=== PATIENT | male | born 1950 | race Caucasian/White ===

== ENCOUNTER 2022-02-13 08:54 | Inpatient (IN) | payer OTHER, MEDICARE ==
[~2022-02-13] VITALS: Ht 182.9 cm; Wt 53.5 kg
[2022-02-13] VITALS (25 sets, daily range): BP systolic 86–136
[~2022-02-13 08:54] MED LIST: DIF100 PO
[2022-02-13] MEDS ORDERED: ROCURONIUM BROMIDE 10 MG/ML (ZEMURON) IV ONE (09:15)
[2022-02-13] MEDS ORDERED: NS 1000 ML IV.SOLN IV ONE (09:15)
[2022-02-13] MEDS ORDERED: ETOMIDATE 20 MG/ 10 ML VIAL (AMIDATE) IVP ONE (09:15)
[2022-02-13] MEDS ORDERED: PIPERACILLIN/TAZO 3.375 GM in D5W 50 ML IV ONE (09:15)
[2022-02-13] MEDS ORDERED: VANCOMYCIN HCL 1,000 MG in D5W 250 ML IV ONE (09:15)
[2022-02-13] MEDS ORDERED: PIPERACILLIN/TAZOBACTAM 3.375 GM/VIAL (ZOSYN) IV ONE (09:28)
[2022-02-13 09:56] LABS: BASOPHILS % (AUTO) 0.2 % (0.0-2.0); HEMATOCRIT 22.6 % (36-54); HEMOGLOBIN 7.3 g/dL (14.0-18.0); LYMPHOCYTES # (AUTO) 2.1 K/uL (1.0-5.5); LYMPHOCYTES % (AUTO) 15.4 % (20.5-51.5); MEAN CORPUSCULAR HEMOGLOBIN 31 pg (27-31); MEAN CORPUSCULAR HGB CONC 32 % (32-36); MEAN CORPUSCULAR VOLUME 95 fL (79.0-98.0); MONOCYTES # (AUTO) 0.4 K/uL (0.0-1.0); MONOCYTES % (AUTO) 2.9 % (1.7-9.3); NEUTROPHILS # (AUTO) 11.3 K/uL (1.8-7.7); NEUTROPHILS % (AUTO) 81.5 % (40.0-70.0); PLATELET COUNT (AUTO) 425 K/uL (130-430); RED BLOOD CELL COUNT(AUTO) 2.39 MIL/uL (4.2-6.2); RED CELL DISTRIBUTION WIDTH 17.3 % (9.0-15.0); WHITE BLOOD COUNT (AUTO) 13.8 K/uL (4.8-10.8)
[2022-02-13] MEDS ORDERED: ROCURONIUM BROMIDE 10 MG/ML (ZEMURON) ONE (10:00)
[2022-02-13] MEDS ORDERED: ETOMIDATE 20 MG/ 10 ML VIAL (AMIDATE) ONE (10:00)
[2022-02-13 10:09] LABS: ANION GAP 13 (5-15); CALCIUM 8.5 mg/dL (8.4-11.0); CHLORIDE 107 mmol/L (98-107); CREATININE 1.07 mg/dL (0.55-1.30); GLUCOSE 161 mg/dL (70-99); UREA NITROGEN, BLOOD 70 mg/dL (8-21)
[2022-02-13 10:14] LABS: ALANINE AMINOTRANSFERASE 18 U/L (12-78); ALBUMIN 1.8 g/dL (3.4-4.8); ASPARTATE AMINOTRANSFERASE 15 U/L (10-37); GFR AFRICAN AMERICAN 88 mL/min (>90); TOTAL BILIRUBIN 0.2 mg/dL (0.0-1.0)
[2022-02-13] MEDS ORDERED: PANTOPRAZOLE SODIUM 40 MG/VIAL (PROTONIX) IVP ONE (10:15)
[2022-02-13] MEDS ORDERED: PROPOFOL DRIP 100 ML IV ONE (11:14)
[2022-02-13] MEDS ORDERED: PROPOFOL DRIP 100 ML IV PRN ×2 (11:15→15:00)
[2022-02-13] MEDS: NACL 0.9% 1,000 ML IV SCH (12:00)
[2022-02-13] MEDS ORDERED: NOREPINEPHRINE 4 MG/4 ML VIAL IV ONE (12:08)
[2022-02-13 12:53] LABS: HEMATOCRIT 20.8 % (36-54); HEMOGLOBIN 6.8 g/dL (14.0-18.0)
[2022-02-13] MEDS ORDERED: CEFEPIME 1 GM in D5W 50 ML IV ONE (13:30)
[2022-02-13 13:47] LABS: INR 1.2 (0.80-1.20)
[2022-02-13] MEDS: metroNIDAZOLE 250 mg/NS 50 ML IV SCH ×2 (15:00→22:00)
[2022-02-13] MEDS ORDERED: PANTOPRAZOLE SODIUM 40 MG in NS 50 ML IV SCH (15:45)
[2022-02-13] MEDS: NOREPINEPHRINE BITARTRATE 4 MG in D5W 246 ML IV PRN ×2 (15:54→18:40)
[2022-02-13] MEDS: PANTOPRAZOLE SODIUM 40 MG in NS 50 ML IV SCH ×2 (16:00→19:53)
[2022-02-13] MEDS: VANCOMYCIN HCL 1,000 MG in NS 250 ML IV SCH (17:00)
[2022-02-13] MEDS ORDERED: COMMUNICATION ORDER XX ONE (18:45)
[2022-02-13 19:43] LABS: HEMATOCRIT 27.1 % (36-54); HEMOGLOBIN 9.2 g/dL (14.0-18.0)
[2022-02-13] MEDS: CEFEPIME 1 GM in D5W 50 ML IV SCH (20:46)
[2022-02-13] MEDS ORDERED: NOREPINEPHRINE BITARTRATE 8 MG in D5W 242 ML IV PRN (21:00)
[2022-02-14] VITALS (43 sets, daily range): BP systolic 81–114
[2022-02-14] MEDS: PANTOPRAZOLE SODIUM 40 MG in NS 50 ML IV SCH ×5 (01:30→20:29)
[2022-02-14] MEDS ORDERED: NOREPINEPHRINE 4 MG/4 ML VIAL IV ONE (01:38)
[2022-02-14] MEDS: PROPOFOL DRIP 100 ML IV PRN ×5 (03:39→23:23)
[2022-02-14] MEDS: NACL 0.9% 1,000 ML IV SCH ×3 (03:46→20:28)
[2022-02-14] MEDS: VANCOMYCIN HCL 1,000 MG in NS 250 ML IV SCH ×2 (04:00→15:32)
[2022-02-14] MEDS: metroNIDAZOLE 250 mg/NS 50 ML IV SCH ×3 (06:22→20:31)
[2022-02-14 07:24] LABS: HEMOGLOBIN 8.4 g/dL (14.0-18.0); MEAN CORPUSCULAR HEMOGLOBIN 30 pg (27-31); MEAN CORPUSCULAR HGB CONC 34 % (32-36); MEAN CORPUSCULAR VOLUME 89 fL (79.0-98.0); PLATELET COUNT (AUTO) 297 K/uL (130-430); RED BLOOD CELL COUNT(AUTO) 2.81 MIL/uL (4.2-6.2); RED CELL DISTRIBUTION WIDTH 16.5 % (9.0-15.0); WHITE BLOOD COUNT (AUTO) 26.8 K/uL (4.8-10.8)
[2022-02-14 07:50] LABS: ALBUMIN 1.7 g/dL (3.4-4.8); CALCIUM 7.3 mg/dL (8.4-11.0); CREATININE 0.83 mg/dL (0.55-1.30); TOTAL BILIRUBIN 0.3 mg/dL (0.0-1.0)
[2022-02-14] MEDS: CEFEPIME 1 GM in D5W 50 ML IV SCH ×2 (10:28→20:30)
[2022-02-14 14:12] LABS: BASOPHILS % (MANUAL) 0 % (0-2); EOSINOPHILS % (MANUAL) 0 % (0-7); LYMPHOCYTES % (MANUAL) 9 % (20-46); MONOCYTES % (MANUAL) 1 % (0-11)
[2022-02-14 14:25] LABS: HEMATOCRIT 22.1 % (36-54); HEMOGLOBIN 7.6 g/dL (14.0-18.0)
[2022-02-14 14:39] LABS: TOTAL IRON BIND. CAPACITY 175 ug/dL (250-450)
[2022-02-14] MEDS: FLUCONAZOLE 100 mg/ NS 50 ML IV SCH (15:32)
[2022-02-14 19:04] LABS: HEMOGLOBIN 7.2 g/dL (14.0-18.0)
[2022-02-14 19:13] LABS: HEMATOCRIT 21.5 % (36-54)
[2022-02-14] MEDS ORDERED: CEFEPIME 1 GM/VIAL (MAXIPIME) ONE (20:14)
[2022-02-15] VITALS (34 sets, daily range): BP systolic 92–120
[2022-02-15] MEDS ORDERED: NOREPINEPHRINE 4 MG/4 ML VIAL IV ONE (01:00)
[2022-02-15] MEDS: NACL 0.9% 1,000 ML IV SCH (01:12)
[2022-02-15] MEDS: PANTOPRAZOLE SODIUM 40 MG in NS 50 ML IV SCH ×5 (01:47→22:33)
[2022-02-15] MEDS: VANCOMYCIN HCL 1,000 MG in NS 250 ML IV SCH ×2 (03:44→17:22)
[2022-02-15] MEDS: metroNIDAZOLE 250 mg/NS 50 ML IV SCH ×3 (05:30→22:33)
[2022-02-15] MEDS: PROPOFOL DRIP 100 ML IV PRN (05:47)
[2022-02-15] MEDS: CEFEPIME 1 GM in D5W 50 ML IV SCH ×2 (08:40→20:47)
[2022-02-15 12:29] LABS: FOLATE (FOLIC ACID) 2.9 ng/mL (>3.0)
[2022-02-15] MEDS ORDERED: IPRATROPIUM/ALBUTEROL SULFATE 3 ML AMPUL.NEB (DUONEB) INH ONE (12:30)
[2022-02-15] MEDS ORDERED: SOD FERRIC GLUC COMPLEX/SUC 125 MG in NS 100 ML IV SCH (14:15)
[2022-02-15] MEDS: FLUCONAZOLE 100 mg/ NS 50 ML IV SCH (15:00)
[2022-02-15] MEDS: IRON SUCROSE COMPLEX 100 MG in NS 50 ML IV SCH (15:30)
[2022-02-15] MEDS: IPRATROPIUM/ALBUTEROL SULFATE 3 ML AMPUL.NEB (DUONEB) INH SCH (19:55)
[2022-02-16] VITALS (24 sets, daily range): BP systolic 92–114
[2022-02-16] MEDS: IPRATROPIUM/ALBUTEROL SULFATE 3 ML AMPUL.NEB (DUONEB) INH SCH ×4 (00:55→19:40)
[2022-02-16] MEDS: PANTOPRAZOLE SODIUM 40 MG in NS 50 ML IV SCH ×5 (03:00→22:33)
[2022-02-16] MEDS: VANCOMYCIN HCL 1,000 MG in NS 250 ML IV SCH ×2 (03:23→17:25)
[2022-02-16] MEDS: metroNIDAZOLE 250 mg/NS 50 ML IV SCH ×3 (05:21→22:28)
[2022-02-16] MEDS ORDERED: NOREPINEPHRINE BITARTRATE 8 MG in D5W 242 ML IV PRN (06:55)
[2022-02-16 07:31] LABS: BASOPHILS % (AUTO) 0.2 % (0.0-2.0); EOSINOPHILS % (AUTO) 0.3 % (0.0-4.0); LYMPHOCYTES # (AUTO) 0.9 K/uL (1.0-5.5); LYMPHOCYTES % (AUTO) 6.3 % (20.5-51.5); MEAN CORPUSCULAR HEMOGLOBIN 31 pg (27-31); MEAN CORPUSCULAR HGB CONC 34 % (32-36); MEAN CORPUSCULAR VOLUME 91 fL (79.0-98.0); MONOCYTES # (AUTO) 0.8 K/uL (0.0-1.0); MONOCYTES % (AUTO) 5.8 % (1.7-9.3); NEUTROPHILS # (AUTO) 11.8 K/uL (1.8-7.7); NEUTROPHILS % (AUTO) 87.4 % (40.0-70.0); PLATELET COUNT (AUTO) 224 K/uL (130-430); RED BLOOD CELL COUNT(AUTO) 2.37 MIL/uL (4.2-6.2); RED CELL DISTRIBUTION WIDTH 16.9 % (9.0-15.0); WHITE BLOOD COUNT (AUTO) 13.5 K/uL (4.8-10.8)
[2022-02-16 07:39] LABS: HEMATOCRIT 21.6 % (36-54); HEMOGLOBIN 7.3 g/dL (14.0-18.0)
[2022-02-16 08:04] LABS: ALBUMIN 1.4 g/dL (3.4-4.8); CALCIUM 7.6 mg/dL (8.4-11.0); CREATININE 0.56 mg/dL (0.55-1.30); TOTAL BILIRUBIN 0.3 mg/dL (0.0-1.0)
[2022-02-16] MEDS: CEFEPIME 1 GM in D5W 50 ML IV SCH ×2 (08:28→20:47)
[2022-02-16] MEDS: NACL 0.9% 1,000 ML IV SCH (08:28)
[2022-02-16] MEDS ORDERED: KCL 40 mEq in 100 mL (PREMIX) 100 ML IV ONE ×2 (10:00→14:00)
[2022-02-16] MEDS: FLUCONAZOLE 100 mg/ NS 50 ML IV SCH (14:25)
[2022-02-16] MEDS: IRON SUCROSE COMPLEX 100 MG in NS 50 ML IV SCH (16:46)
[2022-02-16] MEDS: ALBUMIN HUMAN 25% 100 ML IV SCH ×2 (19:28→23:59)
[2022-02-16] MEDS: POTASSIUM CHLORIDE 20 MEQ/PKT PACKET JT SCH (20:47)
[2022-02-16] MEDS ORDERED: metroNIDAZOLE 500 mg/NS 200 ML IV ONE (22:10)
[2022-02-17] VITALS (24 sets, daily range): BP systolic 91–130
[2022-02-17] MEDS: IPRATROPIUM/ALBUTEROL SULFATE 3 ML AMPUL.NEB (DUONEB) INH SCH ×5 (01:29→23:31)
[2022-02-17 01:38] LABS: BILIRUBIN,URINE NEGATIVE (NEGATIVE); BLOOD, URINE 2+ (NEGATIVE); CLARITY/URINE CLEAR (CLEAR); COLOR,URINE YELLOW (YELLOW); GLUCOSE,URINE NEGATIVE (NEGATIVE); KETONES,URINE NEGATIVE (NEGATIVE); LEUKOCYTE ESTERASE ,URINE NEGATIVE (NEGATIVE); NITRITE, URINE POSITIVE (NEGATIVE); PROTEIN URINE TRACE (NEGATIVE); UROBILINOGEN,URINE 0.2 (0.2-1.0)
[2022-02-17] MEDS: NACL 0.9% 1,000 ML IV SCH ×2 (01:53→16:41)
[2022-02-17 02:27] LABS: URINE SULFO SALICYLIC ACID NEGATIVE (NEGATIVE)
[2022-02-17 02:28] LABS: BACTERIA,URINE FEW /HPF (None Seen); MUCUS,URINE None Seen /LPF (None Seen); RBC,URINE 0-3 /HPF (0-3); YEAST,URINE Few /HPF (None Seen)
[2022-02-17] MEDS: ALBUMIN HUMAN 25% 100 ML IV SCH (03:28)
[2022-02-17] MEDS: PANTOPRAZOLE SODIUM 40 MG in NS 50 ML IV SCH ×4 (03:28→18:17)
[2022-02-17] MEDS: VANCOMYCIN HCL 1,000 MG in NS 250 ML IV SCH ×2 (04:35→16:40)
[2022-02-17] MEDS: metroNIDAZOLE 250 mg/NS 50 ML IV SCH ×3 (05:56→22:55)
[2022-02-17 07:09] LABS: ALBUMIN 2.3 g/dL (3.4-4.8); CREATININE 0.5 mg/dL (0.55-1.30); TOTAL BILIRUBIN 0.3 mg/dL (0.0-1.0)
[2022-02-17] MEDS: CEFEPIME 1 GM in D5W 50 ML IV SCH ×2 (08:20→20:23)
[2022-02-17] MEDS: POTASSIUM CHLORIDE 20 MEQ/PKT PACKET JT SCH ×2 (08:20→20:22)
[2022-02-17 08:22] LABS: BASOPHILS % (AUTO) 0.2 % (0.0-2.0); EOSINOPHILS # (AUTO) 0.1 K/uL (0.0-0.4); EOSINOPHILS % (AUTO) 1.8 % (0.0-4.0); LYMPHOCYTES # (AUTO) 0.8 K/uL (1.0-5.5); LYMPHOCYTES % (AUTO) 10.3 % (20.5-51.5); MEAN CORPUSCULAR HEMOGLOBIN 31 pg (27-31); MEAN CORPUSCULAR HGB CONC 34 % (32-36); MEAN CORPUSCULAR VOLUME 91 fL (79.0-98.0); MONOCYTES # (AUTO) 0.4 K/uL (0.0-1.0); MONOCYTES % (AUTO) 5.6 % (1.7-9.3); NEUTROPHILS # (AUTO) 6.5 K/uL (1.8-7.7); NEUTROPHILS % (AUTO) 82.1 % (40.0-70.0); PLATELET COUNT (AUTO) 220 K/uL (130-430); RED BLOOD CELL COUNT(AUTO) 2.16 MIL/uL (4.2-6.2); RED CELL DISTRIBUTION WIDTH 17.2 % (9.0-15.0)
[2022-02-17 08:52] LABS: HEMATOCRIT 19.6 % (36-54); HEMOGLOBIN 6.6 g/dL (14.0-18.0)
[2022-02-17] MEDS: FLUCONAZOLE 100 mg/ NS 50 ML IV SCH (15:40)
[2022-02-17] MEDS: IRON SUCROSE COMPLEX 100 MG in NS 50 ML IV SCH (16:40)
[2022-02-17] MEDS ORDERED: FUROSEMIDE 40 MG/4 ML VIAL IVP ONE (20:00)
[2022-02-17] MEDS ORDERED: FUROSEMIDE 40 MG/4 ML VIAL ONE (20:19)
[2022-02-18] VITALS (21 sets, daily range): BP systolic 96–143
[2022-02-18] MEDS: PANTOPRAZOLE SODIUM 40 MG in NS 50 ML IV SCH ×6 (00:42→21:06)
[2022-02-18] MEDS: VANCOMYCIN HCL 1,000 MG in NS 250 ML IV SCH ×2 (04:37→16:26)
[2022-02-18] MEDS: metroNIDAZOLE 250 mg/NS 50 ML IV SCH ×3 (05:24→23:11)
[2022-02-18] MEDS: NACL 0.9% 1,000 ML IV SCH (06:24)
[2022-02-18 06:47] LABS: CALCIUM 7.8 mg/dL (8.4-11.0); CREATININE 0.5 mg/dL (0.55-1.30)
[2022-02-18 06:48] LABS: BASOPHILS % (AUTO) 0.3 % (0.0-2.0); EOSINOPHILS # (AUTO) 0.3 K/uL (0.0-0.4); EOSINOPHILS % (AUTO) 3.5 % (0.0-4.0); HEMATOCRIT 27.4 % (36-54); HEMOGLOBIN 9.3 g/dL (14.0-18.0); LYMPHOCYTES # (AUTO) 1.2 K/uL (1.0-5.5); LYMPHOCYTES % (AUTO) 12.8 % (20.5-51.5); MEAN CORPUSCULAR HEMOGLOBIN 30 pg (27-31); MEAN CORPUSCULAR HGB CONC 34 % (32-36); MEAN CORPUSCULAR VOLUME 89 fL (79.0-98.0); MONOCYTES # (AUTO) 0.7 K/uL (0.0-1.0); MONOCYTES % (AUTO) 7.9 % (1.7-9.3); NEUTROPHILS # (AUTO) 6.9 K/uL (1.8-7.7); NEUTROPHILS % (AUTO) 75.5 % (40.0-70.0); PLATELET COUNT (AUTO) 245 K/uL (130-430); RED BLOOD CELL COUNT(AUTO) 3.07 MIL/uL (4.2-6.2); RED CELL DISTRIBUTION WIDTH 16.6 % (9.0-15.0); WHITE BLOOD COUNT (AUTO) 9.1 K/uL (4.8-10.8)
[2022-02-18] MEDS: IPRATROPIUM/ALBUTEROL SULFATE 3 ML AMPUL.NEB (DUONEB) INH SCH ×3 (07:37→20:12)
[2022-02-18] MEDS: CEFEPIME 1 GM in D5W 50 ML IV SCH ×2 (08:06→21:05)
[2022-02-18] MEDS: POTASSIUM CHLORIDE 20 MEQ/PKT PACKET JT SCH ×2 (08:07→21:06)
[2022-02-18] MEDS: FLUCONAZOLE 100 mg/ NS 50 ML IV SCH (15:18)
[2022-02-18] MEDS: IRON SUCROSE COMPLEX 100 MG in NS 50 ML IV SCH (16:26)
[2022-02-18] MEDS ORDERED: PANTOPRAZOLE SODIUM 40 MG/VIAL (PROTONIX) ONE (20:57)
[2022-02-19] VITALS (7 sets, daily range): BP systolic 104–116
[2022-02-19] MEDS: IPRATROPIUM/ALBUTEROL SULFATE 3 ML AMPUL.NEB (DUONEB) INH SCH ×4 (00:30→20:31)
[2022-02-19] MEDS: PANTOPRAZOLE SODIUM 40 MG in NS 50 ML IV SCH ×5 (01:38→21:50)
[2022-02-19] MEDS: VANCOMYCIN HCL 1,000 MG in NS 250 ML IV SCH ×2 (03:58→16:33)
[2022-02-19] MEDS: metroNIDAZOLE 250 mg/NS 50 ML IV SCH ×3 (07:08→21:51)
[2022-02-19 08:01] LABS: BASOPHILS % (AUTO) 0.2 % (0.0-2.0); EOSINOPHILS # (AUTO) 0.3 K/uL (0.0-0.4); EOSINOPHILS % (AUTO) 2.2 % (0.0-4.0); HEMATOCRIT 32.1 % (36-54); HEMOGLOBIN 10.5 g/dL (14.0-18.0); LYMPHOCYTES # (AUTO) 1.1 K/uL (1.0-5.5); LYMPHOCYTES % (AUTO) 8.5 % (20.5-51.5); MEAN CORPUSCULAR HEMOGLOBIN 30 pg (27-31); MEAN CORPUSCULAR HGB CONC 33 % (32-36); MEAN CORPUSCULAR VOLUME 91 fL (79.0-98.0); MONOCYTES # (AUTO) 0.7 K/uL (0.0-1.0); MONOCYTES % (AUTO) 4.8 % (1.7-9.3); NEUTROPHILS # (AUTO) 11.3 K/uL (1.8-7.7); NEUTROPHILS % (AUTO) 84.3 % (40.0-70.0); PLATELET COUNT (AUTO) 289 K/uL (130-430); RED BLOOD CELL COUNT(AUTO) 3.51 MIL/uL (4.2-6.2); RED CELL DISTRIBUTION WIDTH 16.8 % (9.0-15.0); WHITE BLOOD COUNT (AUTO) 13.5 K/uL (4.8-10.8)
[2022-02-19 08:49] LABS: CALCIUM 7.3 mg/dL (8.4-11.0); CREATININE 0.62 mg/dL (0.55-1.30)
[2022-02-19] MEDS: POTASSIUM CHLORIDE 20 MEQ/PKT PACKET JT SCH ×2 (10:32→20:52)
[2022-02-19] MEDS: CEFEPIME 1 GM in D5W 50 ML IV SCH ×2 (10:36→20:52)
[2022-02-19] MEDS: FLUCONAZOLE 100 mg/ NS 50 ML IV SCH (15:00)
[2022-02-19] MEDS: IRON SUCROSE COMPLEX 100 MG in NS 50 ML IV SCH (16:34)
[2022-02-19] MEDS: NACL 0.9% 1,000 ML IV SCH (20:53)
[2022-02-20 00:08] VITALS: BP_SYST 111
[2022-02-20] MEDS: PANTOPRAZOLE SODIUM 40 MG in NS 50 ML IV SCH ×5 (02:50→22:31)
[2022-02-20] MEDS ORDERED: VANCOMYCIN HCL 1000 MG/VIAL IV ONE (04:16)
[2022-02-20] MEDS: VANCOMYCIN HCL 1,000 MG in NS 250 ML IV SCH ×2 (04:28→15:07)
[2022-02-20 06:49] LABS: BASOPHILS % (AUTO) 0.4 % (0.0-2.0); EOSINOPHILS # (AUTO) 0.3 K/uL (0.0-0.4); EOSINOPHILS % (AUTO) 2.6 % (0.0-4.0); HEMATOCRIT 32.4 % (36-54); HEMOGLOBIN 10.7 g/dL (14.0-18.0); LYMPHOCYTES # (AUTO) 1.1 K/uL (1.0-5.5); LYMPHOCYTES % (AUTO) 8.6 % (20.5-51.5); MEAN CORPUSCULAR HEMOGLOBIN 30 pg (27-31); MEAN CORPUSCULAR HGB CONC 33 % (32-36); MEAN CORPUSCULAR VOLUME 92 fL (79.0-98.0); MONOCYTES # (AUTO) 0.7 K/uL (0.0-1.0); MONOCYTES % (AUTO) 4.9 % (1.7-9.3); NEUTROPHILS % (AUTO) 83.5 % (40.0-70.0); PLATELET COUNT (AUTO) 303 K/uL (130-430); RED BLOOD CELL COUNT(AUTO) 3.52 MIL/uL (4.2-6.2); RED CELL DISTRIBUTION WIDTH 17.2 % (9.0-15.0); WHITE BLOOD COUNT (AUTO) 13.2 K/uL (4.8-10.8)
[2022-02-20 07:17] LABS: CALCIUM 8.2 mg/dL (8.4-11.0); CREATININE 0.53 mg/dL (0.55-1.30)
[2022-02-20] MEDS: IPRATROPIUM/ALBUTEROL SULFATE 3 ML AMPUL.NEB (DUONEB) INH SCH ×4 (07:26→21:18)
[2022-02-20 08:30] VITALS: BP_SYST 106
[2022-02-20] MEDS: NACL 0.9% 1,000 ML IV SCH ×3 (10:32→15:16)
[2022-02-20] MEDS: POTASSIUM CHLORIDE 20 MEQ/PKT PACKET JT SCH ×2 (10:33→22:30)
[2022-02-20 11:25] VITALS: BP_SYST 108
[2022-02-20] MEDS: FLUCONAZOLE 100 mg/ NS 50 ML IV SCH (15:06)
[2022-02-20 15:31] VITALS: BP_SYST 106
[2022-02-20] MEDS: IRON SUCROSE COMPLEX 100 MG in NS 50 ML IV SCH (17:07)
[2022-02-20 19:20] VITALS: BP_SYST 124
[2022-02-21] VITALS: BP_SYST 101
[2022-02-21] MEDS ORDERED: traZODone HCL 50 MG TABLET (DESYREL) PO PRN (03:30)
[2022-02-21] MEDS: VANCOMYCIN HCL 1,000 MG in NS 250 ML IV SCH ×2 (03:41→15:58)
[2022-02-21] MEDS: PANTOPRAZOLE SODIUM 40 MG in NS 50 ML IV SCH ×4 (03:42→18:39)
[2022-02-21] MEDS: LORazepam 2 MG/ML VIAL IVP PRN (04:21)
[2022-02-21] MEDS: IPRATROPIUM/ALBUTEROL SULFATE 3 ML AMPUL.NEB (DUONEB) INH SCH ×4 (07:19→18:00)
[2022-02-21 08:18] LABS: BASOPHILS # (AUTO) 0.1 K/uL (0.0-0.2); BASOPHILS % (AUTO) 0.4 % (0.0-2.0); EOSINOPHILS # (AUTO) 0.3 K/uL (0.0-0.4); EOSINOPHILS % (AUTO) 2.6 % (0.0-4.0); HEMATOCRIT 34.3 % (36-54); HEMOGLOBIN 11.4 g/dL (14.0-18.0); LYMPHOCYTES # (AUTO) 1.3 K/uL (1.0-5.5); LYMPHOCYTES % (AUTO) 10.1 % (20.5-51.5); MEAN CORPUSCULAR HEMOGLOBIN 31 pg (27-31); MEAN CORPUSCULAR HGB CONC 33 % (32-36); MEAN CORPUSCULAR VOLUME 93 fL (79.0-98.0); MONOCYTES % (AUTO) 7.7 % (1.7-9.3); NEUTROPHILS # (AUTO) 10.2 K/uL (1.8-7.7); NEUTROPHILS % (AUTO) 79.2 % (40.0-70.0); PLATELET COUNT (AUTO) 347 K/uL (130-430); RED CELL DISTRIBUTION WIDTH 17.3 % (9.0-15.0); WHITE BLOOD COUNT (AUTO) 12.9 K/uL (4.8-10.8)
[2022-02-21] MEDS: POTASSIUM CHLORIDE 20 MEQ/PKT PACKET JT SCH ×2 (09:18→22:08)
[2022-02-21] MEDS: NACL 0.9% 1,000 ML IV SCH ×2 (09:20→22:09)
[2022-02-21 09:39] VITALS: BP_SYST 100
[2022-02-21 17:25] VITALS: BP_SYST 121
[2022-02-21] MEDS: IRON SUCROSE COMPLEX 100 MG in NS 50 ML IV SCH (18:39)
[2022-02-21 20:00] VITALS: BP_SYST 107
[2022-02-22] MEDS: PANTOPRAZOLE SODIUM 40 MG in NS 50 ML IV SCH ×6 (00:22→23:28)
[2022-02-22 00:45] VITALS: BP_SYST 107
[2022-02-22] MEDS: VANCOMYCIN HCL 1,000 MG in NS 250 ML IV SCH ×2 (04:13→16:44)
[2022-02-22] MEDS: IPRATROPIUM/ALBUTEROL SULFATE 3 ML AMPUL.NEB (DUONEB) INH SCH ×4 (07:03→20:38)
[2022-02-22 08:02] LABS: CALCIUM 8.2 mg/dL (8.4-11.0); CREATININE 0.52 mg/dL (0.55-1.30)
[2022-02-22 08:31] LABS: BASOPHILS # (AUTO) 0.1 K/uL (0.0-0.2); BASOPHILS % (AUTO) 0.5 % (0.0-2.0); EOSINOPHILS # (AUTO) 0.2 K/uL (0.0-0.4); EOSINOPHILS % (AUTO) 1.6 % (0.0-4.0); HEMATOCRIT 32.1 % (36-54); HEMOGLOBIN 10.6 g/dL (14.0-18.0); LYMPHOCYTES # (AUTO) 1.3 K/uL (1.0-5.5); LYMPHOCYTES % (AUTO) 10.2 % (20.5-51.5); MEAN CORPUSCULAR HEMOGLOBIN 31 pg (27-31); MEAN CORPUSCULAR HGB CONC 33 % (32-36); MEAN CORPUSCULAR VOLUME 93 fL (79.0-98.0); MONOCYTES # (AUTO) 0.8 K/uL (0.0-1.0); MONOCYTES % (AUTO) 5.9 % (1.7-9.3); NEUTROPHILS # (AUTO) 10.7 K/uL (1.8-7.7); NEUTROPHILS % (AUTO) 81.8 % (40.0-70.0); PLATELET COUNT (AUTO) 360 K/uL (130-430); RED BLOOD CELL COUNT(AUTO) 3.43 MIL/uL (4.2-6.2); RED CELL DISTRIBUTION WIDTH 17.3 % (9.0-15.0); WHITE BLOOD COUNT (AUTO) 13.1 K/uL (4.8-10.8)
[2022-02-22] MEDS: POTASSIUM CHLORIDE 20 MEQ/PKT PACKET JT SCH ×2 (08:34→21:26)
[2022-02-22] MEDS: NACL 0.9% 1,000 ML IV SCH (10:27)
[2022-02-22 12:50] VITALS: BP_SYST 100
[2022-02-22 15:20] VITALS: BP_SYST 114
[2022-02-22] MEDS: IRON SUCROSE COMPLEX 100 MG in NS 50 ML IV SCH (16:45)
[2022-02-22 20:00] VITALS: BP_SYST 101
[2022-02-22] MEDS: LORazepam 2 MG/ML VIAL IVP PRN (21:28)
[2022-02-23] VITALS: BP_SYST 105
[2022-02-23] MEDS: NACL 0.9% 1,000 ML IV SCH ×2 (02:32→14:27)
[2022-02-23] MEDS: VANCOMYCIN HCL 1,000 MG in NS 250 ML IV SCH ×2 (04:10→15:39)
[2022-02-23] MEDS: PANTOPRAZOLE SODIUM 40 MG in NS 50 ML IV SCH ×4 (04:34→22:51)
[2022-02-23] MEDS: IPRATROPIUM/ALBUTEROL SULFATE 3 ML AMPUL.NEB (DUONEB) INH SCH ×5 (07:19→23:22)
[2022-02-23 08:00] VITALS: BP_SYST 118
[2022-02-23 08:08] LABS: BASOPHILS % (AUTO) 0.3 % (0.0-2.0); EOSINOPHILS # (AUTO) 0.2 K/uL (0.0-0.4); HEMATOCRIT 33.4 % (36-54); HEMOGLOBIN 11.1 g/dL (14.0-18.0); LYMPHOCYTES # (AUTO) 1.2 K/uL (1.0-5.5); LYMPHOCYTES % (AUTO) 9.7 % (20.5-51.5); MEAN CORPUSCULAR HEMOGLOBIN 31 pg (27-31); MEAN CORPUSCULAR HGB CONC 33 % (32-36); MEAN CORPUSCULAR VOLUME 94 fL (79.0-98.0); MONOCYTES # (AUTO) 0.6 K/uL (0.0-1.0); MONOCYTES % (AUTO) 5.1 % (1.7-9.3); NEUTROPHILS # (AUTO) 9.9 K/uL (1.8-7.7); NEUTROPHILS % (AUTO) 82.9 % (40.0-70.0); PLATELET COUNT (AUTO) 413 K/uL (130-430); RED BLOOD CELL COUNT(AUTO) 3.57 MIL/uL (4.2-6.2); RED CELL DISTRIBUTION WIDTH 18.1 % (9.0-15.0); WHITE BLOOD COUNT (AUTO) 11.9 K/uL (4.8-10.8)
[2022-02-23 08:33] LABS: CALCIUM 7.7 mg/dL (8.4-11.0); CREATININE 0.57 mg/dL (0.55-1.30)
[2022-02-23] MEDS: POTASSIUM CHLORIDE 20 MEQ/PKT PACKET JT SCH ×2 (08:51→22:51)
[2022-02-23 11:21] VITALS: BP_SYST 117
[2022-02-23 15:25] VITALS: BP_SYST 99
[2022-02-23] MEDS: LORazepam 2 MG/ML VIAL IVP PRN (16:16)
[2022-02-23 20:00] VITALS: BP_SYST 115
[2022-02-24] MEDS: LORazepam 2 MG/ML VIAL IVP PRN ×3 (00:19→18:29)
[2022-02-24] MEDS: PANTOPRAZOLE SODIUM 40 MG in NS 50 ML IV SCH ×5 (03:10→22:34)
[2022-02-24] MEDS: VANCOMYCIN HCL 1,000 MG in NS 250 ML IV SCH ×2 (05:35→15:13)
[2022-02-24] MEDS: NACL 0.9% 1,000 ML IV SCH ×2 (05:36→09:54)
[2022-02-24] MEDS: IPRATROPIUM/ALBUTEROL SULFATE 3 ML AMPUL.NEB (DUONEB) INH SCH ×4 (07:09→23:43)
[2022-02-24 07:14] LABS: ALBUMIN 1.7 g/dL (3.4-4.8); CREATININE 0.48 mg/dL (0.55-1.30); TOTAL BILIRUBIN 0.2 mg/dL (0.0-1.0)
[2022-02-24 08:13] VITALS: BP_SYST 107
[2022-02-24] MEDS: POTASSIUM CHLORIDE 20 MEQ/PKT PACKET JT SCH ×2 (09:53→22:34)
[2022-02-24 11:39] VITALS: BP_SYST 123
[2022-02-24 15:41] VITALS: BP_SYST 123
[2022-02-24 15:50] VITALS: BP_SYST 125
[2022-02-24] MEDS ORDERED: POTASSIUM CHLORIDE 20 MEQ/PKT PACKET JT ONE (18:15)
[2022-02-24 21:18] VITALS: BP_SYST 120
[2022-02-25 01:44] VITALS: BP_SYST 114
[2022-02-25] MEDS: PANTOPRAZOLE SODIUM 40 MG in NS 50 ML IV SCH (06:10)
[2022-02-25] MEDS: VANCOMYCIN HCL 1,000 MG in NS 250 ML IV SCH ×2 (06:11→16:57)
[2022-02-25] MEDS: NACL 0.9% 1,000 ML IV SCH (06:11)
[2022-02-25] MEDS: IPRATROPIUM/ALBUTEROL SULFATE 3 ML AMPUL.NEB (DUONEB) INH SCH ×2 (07:25→11:28)
[2022-02-25 08:00] VITALS: BP_SYST 105
[2022-02-25] MEDS ORDERED: PANTOPRAZOLE SODIUM 40 MG/VIAL (PROTONIX) ONE (10:38)
[2022-02-25] MEDS: POTASSIUM CHLORIDE 20 MEQ/PKT PACKET JT SCH (10:41)
[2022-02-25 11:22] VITALS: BP_SYST 121
[2022-02-25] MEDS: LORazepam 2 MG/ML VIAL IVP PRN (14:49)
[2022-02-25 15:24] VITALS: BP_SYST 140
[2022-02-25 17:21] VITALS: BP_SYST 140
== END 2022-02-25 18:15 | DRG 871 ==
LOC: SED 08:54 → SIC 10:49 → STU 02-18 17:11 → SMU 02-21 17:35
PROVIDERS: ADMIT Internal Medicine; ATTEND Internal Medicine
PROC: 5A1945Z Respiratory Ventilation, 24-96 Consecutive Hours (ICD-10-PCS; principal; 2022-02-13)
PROC: 02HV33Z Insertion of Infusion Device into Superior Vena Cava, Percutaneous Approach (ICD-10-PCS; 2022-02-13)
PROC: B548ZZA Ultrasonography of Superior Vena Cava, Guidance (ICD-10-PCS; 2022-02-13)
PROC: 0BH17EZ Insertion of Endotracheal Airway into Trachea, Via Natural or Artificial Opening (ICD-10-PCS; 2022-02-13)
PROC: 30233N1 Transfusion of Nonautologous Red Blood Cells into Peripheral Vein, Percutaneous Approach (ICD-10-PCS; 2022-02-15)
DX: A41.9 Sepsis, unspecified organism (principal); E43 Unspecified severe protein-calorie malnutrition; J96.01 Acute respiratory failure with hypoxia; J69.0 Pneumonitis due to inhalation of food and vomit; R65.21 Severe sepsis with septic shock; D62 Acute posthemorrhagic anemia; C15.9 Malignant neoplasm of esophagus, unspecified; B37.81 Candidal esophagitis; K92.2 Gastrointestinal hemorrhage, unspecified; Z68.1 Body mass index [BMI] 19.9 or less, adult; R13.10 Dysphagia, unspecified; Z20.822 Contact with and (suspected) exposure to COVID-19; D63.8 Anemia in other chronic diseases classified elsewhere; D49.0 Neoplasm of unspecified behavior of digestive system; Z87.891 Personal history of nicotine dependence
CPT/HCPCS: 36415; 71045; 80048; 80053; 80202; 81000; 82607; 82728; 82746; 82803-TC; 83540; 83550; 83605; 83735; 84100; 84484; 85007; 85018; 85025; 85027; 85044; 85610-TC; 85730-TC; 86886; 86900; 86901; 86920; 87040; 87081; 93005; 94002; 94003; 94010; 94640; 94760; 96365; 97110-GP; 97116-GP; 97530-GP; 99291; 99292; C1751; C9113; G0378; J0692; J1450; J1756; J1940; J2060; J2543; J2704; J3370; J3480; J3490; J7030; J7042; J7050; J7060; P9021

== ENCOUNTER 2022-02-27 12:16 | Emergency (ER) | payer OTHER, MEDICARE | END 2022-02-27 16:00 | disposition home or self-care (01) | LOC: SED 12:16 | DX: K94.13 Enterostomy malfunction (principal); Z79.899 Other long term (current) drug therapy | CPT/HCPCS: 74240-TC; 99283 ==

== ENCOUNTER 2022-03-02 13:18 | Emergency (ER) | payer OTHER, MEDICARE ==
[~2022-03-02] VITALS: Ht 182.9 cm; Wt 79.4 kg
[2022-03-02 13:23] VITALS: BP_SYST 90
--- NOTE | 2022-03-02 13:28 | NUR ---
Patient to ER bed amb1 to gown for evaluation. Side rails up.
--- NOTE | 2022-03-02 13:29 | NUR ---
MINI Toure at bedside examining patient.
[2022-03-02 13:30] VITALS: BP_SYST 90
--- NOTE | 2022-03-02 13:30 | NUR ---
Patient given written and verbal discharge instructions and verbalizes understanding. ER MD discussed with patient the results and treatment provided. Patient in stable condition. ID arm band removed. no Rx of given. Patient educated on pain management and to follow up with PMD. Pain Scale 0. Opportunity for questions provided and answered. Medication side effect fact sheet provided.
--- NOTE | 2022-03-02 13:31 | NUR ---
Report called to [facility] spoke Rylan COPE, detailed instructions given on the care and maintenence of JPEG given, understanding verbalized.
== END 2022-03-02 13:30 | disposition home or self-care (01) ==
LOC: SED 13:18
DX: K94.13 Enterostomy malfunction (principal); Z79.899 Other long term (current) drug therapy
CPT/HCPCS: 99281

== ENCOUNTER 2022-03-18 12:04 | Emergency (ER) | payer OTHER, MEDICARE ==
[~2022-03-18] VITALS: Ht 182.9 cm; Wt 47.6 kg
--- NOTE | 2022-03-18 12:43 | NUR ---
PT WAS B/B AMBULANCE THEN PUT ON BED 5.
[2022-03-18 12:48] VITALS: BP_SYST 118
[2022-03-18] MEDS ORDERED: PIPERACILLIN/TAZO 3.375 GM in D5W 50 ML IV ONE (13:30)
[2022-03-18] MEDS ORDERED: VANCOMYCIN HCL 1,000 MG in D5W 250 ML IV ONE (13:30)
--- NOTE | 2022-03-18 13:55 | NUR ---
PT URINATED BY URINAL, URINE SAMPLE COLLECTED. XRAY BEDSIDE FOR CHEST XRAY.
[2022-03-18] MEDS ORDERED: VANCOMYCIN HCL 1000 MG/VIAL IV ONE (14:16)
[2022-03-18] MEDS ORDERED: PIPERACILLIN/TAZOBACTAM 3.375 GM/VIAL (ZOSYN) IV ONE (14:16)
[2022-03-18 14:18] LABS: BILIRUBIN,URINE NEGATIVE (NEGATIVE); BLOOD, URINE NEGATIVE (NEGATIVE); CLARITY/URINE CLEAR (CLEAR); COLOR,URINE YELLOW (YELLOW); GLUCOSE,URINE NEGATIVE (NEGATIVE); KETONES,URINE NEGATIVE (NEGATIVE); LEUKOCYTE ESTERASE ,URINE NEGATIVE (NEGATIVE); NITRITE, URINE POSITIVE (NEGATIVE); PROTEIN URINE NEGATIVE (NEGATIVE); UROBILINOGEN,URINE 0.2 (0.2-1.0)
--- NOTE | 2022-03-18 14:28 | NUR ---
PT WAS A/OX4, FAMILY BEDSIDE. PER DEVIKA, PT WAS D/C'D FROM THIS HOSPITAL, BUT PT STILL FAILLYING OF WEAKNESS. PT HAS JTUBE. PT IS DIFFICULTY TO SWALLOW, ONLY CAN DRINK SOME ICE-CHIP WHICH WAS OFFERED TO PT. PT WAS HERE THIS TIME FOR HIGH WBC.
[2022-03-18 14:41] LABS: BACTERIA,URINE RARE /HPF (None Seen); RBC,URINE NONE SEEN /HPF (0-3)
[2022-03-18 14:42] LABS: MUCUS,URINE 1+ /LPF (None Seen)
--- NOTE | 2022-03-18 15:04 | NUR ---
LAB PHLABOTAMIST DONE THE BLOOD DRAWN INCLUDING OF BC. ANTIBOITICS IVPB STARTED.
[2022-03-18 15:23] LABS: BASOPHILS % (AUTO) 0.2 % (0.0-2.0); EOSINOPHILS % (AUTO) 0.1 % (0.0-4.0); HEMATOCRIT 32.2 % (36-54); HEMOGLOBIN 10.5 g/dL (14.0-18.0); LYMPHOCYTES # (AUTO) 1.1 K/uL (1.0-5.5); LYMPHOCYTES % (AUTO) 8.6 % (20.5-51.5); MEAN CORPUSCULAR HEMOGLOBIN 31 pg (27-31); MEAN CORPUSCULAR HGB CONC 33 % (32-36); MEAN CORPUSCULAR VOLUME 96 fL (79.0-98.0); MONOCYTES # (AUTO) 0.5 K/uL (0.0-1.0); MONOCYTES % (AUTO) 4.1 % (1.7-9.3); NEUTROPHILS # (AUTO) 11.4 K/uL (1.8-7.7); PLATELET COUNT (AUTO) 324 K/uL (130-430); RED BLOOD CELL COUNT(AUTO) 3.37 MIL/uL (4.2-6.2); RED CELL DISTRIBUTION WIDTH 18.5 % (9.0-15.0); WHITE BLOOD COUNT (AUTO) 13.1 K/uL (4.8-10.8)
[2022-03-18 15:32] LABS: ANION GAP 8 (5-15); CALCIUM 8.7 mg/dL (8.4-11.0); CHLORIDE 103 mmol/L (98-107); CREATININE 0.77 mg/dL (0.55-1.30); GLUCOSE 93 mg/dL (70-99); UREA NITROGEN, BLOOD 34 mg/dL (8-21)
[2022-03-18 15:35] LABS: GFR AFRICAN AMERICAN 129 mL/min (>90); INR 1.2 (0.80-1.20); PROTHROMBIN TIME 11.9 SECS (9.5-12.5)
[2022-03-18 15:41] LABS: ALANINE AMINOTRANSFERASE 18 U/L (12-78); ALBUMIN 1.9 g/dL (3.4-4.8); ASPARTATE AMINOTRANSFERASE 17 U/L (10-37); TOTAL BILIRUBIN 0.3 mg/dL (0.0-1.0)
[2022-03-18] MEDS ORDERED: NITR-85 PO (16:15)
--- NOTE | 2022-03-18 16:30 | NUR ---
INGOT CASTER ACSW Hilaria responded to a patient request for Social Service support via phone request from ED nurse practitioner physicians assistant Lori. ACSW Met with patient at bedside in Room 5. ACSW completed introductions, provided business card and patient was open to contact. Patient stated he did not need to speak with Social Work and stated he just wanted to return home. ACSW attempted to explore needs further, but patient again requested to know discharge time and declined further support from Lead Custodian at this time. ACSW provided update to nurse practitioner physicians assistant Lori, Lead Custodian will continue to be available as needed
--- NOTE | 2022-03-18 17:32 | NUR ---
ANTIBIOTICS IVPB DONE. DR. RICE DECIDED TO D/C PT BACK TO SNF. SECRATORY CALLED AMBULANCE HERE TO PICKUP PT. REPORT ENDORSED TO EMT.
--- NOTE | 2022-03-18 17:40 | NUR ---
[facility] WAS CALLED. REPORT WAS ENDORSED TO ARIEL NICHOLSON.
[2022-03-18 17:42] VITALS: BP_SYST 134
== END 2022-03-18 17:40 ==
LOC: SED 12:04
DX: N39.0 Urinary tract infection, site not specified (principal); K21.9 Gastro-esophageal reflux disease without esophagitis; R53.1 Weakness; R79.9 Abnormal finding of blood chemistry, unspecified; Z79.899 Other long term (current) drug therapy
CPT/HCPCS: 36415; 71045; 80053; 81000; 83605; 84484; 85025; 85610-TC; 85730-TC; 87040; 87086; 96365; 96368; 99284; 99291; J2543; J3370

== ENCOUNTER 2022-08-25 15:50 | Inpatient (IN) | payer OTHER, MEDICARE, MEDICAID ==
[~2022-08-25] VITALS: Ht 185.4 cm; Wt 41.7 kg
[~2022-08-25 15:50] MED LIST changes: +ACET160S2 JT; +ALBU2.5V7 HHN; +BISA10SU61 RC; +HYDR-3917 JT; +LOM2.5 PO; +MELA5TAB12 JT; +MIDO5TAB4 JT; +MOM JT; +MORP10SO JT; +MULT-1193 PO; +NA P133E41 RC; +NICO-736 TP; +ONDA4VIA52 JT; +PANT40SU2 PO; +PROC10TA13 JT; +SERT25TA77 JT; +TRAZ-250 PO; +[UNRECOGNIZED DRUG - CODE] JT
--- NOTE | 2022-08-25 16:00 | NUR ---
Patient brought into ED via ambulance. Patient awaited until room 4 was cleared and then was placed on that gurney. Patient with SO at bedside.
[2022-08-25 16:11] VITALS: BP_SYST 103
--- NOTE | 2022-08-25 17:00 | NUR ---
Patient has been evaluated by MD. Patient's tube coming out requires patient to be admitted to the hospital [facility]. Patient aprised of stay at this time.
[2022-08-25] MEDS ORDERED: ONDANSETRON HCL 4 MG/2 ML VIAL IVP ONE (18:00)
[2022-08-25] MEDS ORDERED: MORPHINE 2 MG/ML INJ. SYRINGE IVP ONE (18:00)
[2022-08-25] MEDS ORDERED: KETOROLAC TROMETHAMINE 30 MG VIAL IVP ONE (18:00)
[2022-08-25] MEDS ORDERED: NACL 0.9% 1,000 ML IV ONE (18:00)
[2022-08-25 18:16] LABS: BASOPHILS % (AUTO) 0.2 % (0.0-2.0); EOSINOPHILS % (AUTO) 0.2 % (0.0-4.0); HEMATOCRIT 26.1 % (36-54); HEMOGLOBIN 8.7 g/dL (14.0-18.0); LYMPHOCYTES # (AUTO) 1.4 K/uL (1.0-5.5); LYMPHOCYTES % (AUTO) 10.6 % (20.5-51.5); MEAN CORPUSCULAR HEMOGLOBIN 34 pg (27-31); MEAN CORPUSCULAR HGB CONC 33 % (32-36); MEAN CORPUSCULAR VOLUME 101 fL (79.0-98.0); MONOCYTES # (AUTO) 1.2 K/uL (0.0-1.0); MONOCYTES % (AUTO) 8.9 % (1.7-9.3); NEUTROPHILS # (AUTO) 10.7 K/uL (1.8-7.7); NEUTROPHILS % (AUTO) 80.1 % (40.0-70.0); PLATELET COUNT (AUTO) 566 K/uL (130-430); RED BLOOD CELL COUNT(AUTO) 2.58 MIL/uL (4.2-6.2); RED CELL DISTRIBUTION WIDTH 16.3 % (9.0-15.0); WHITE BLOOD COUNT (AUTO) 13.4 K/uL (4.8-10.8)
[2022-08-25 18:26] LABS: ANION GAP 7 (5-15); CALCIUM 7.9 mg/dL (8.4-11.0); CHLORIDE 96 mmol/L (98-107); CREATININE 0.45 mg/dL (0.55-1.30); GLUCOSE 106 mg/dL (70-99); UREA NITROGEN, BLOOD 20 mg/dL (8-21)
[2022-08-25 18:27] LABS: GFR AFRICAN AMERICAN 239 mL/min (>90)
--- NOTE | 2022-08-25 18:30 | NUR ---
Patient given IV, pain meds and fluids at this time. RN asked patient to provide urine. Patient stated that her couldn't. Advised him to let us know when he needed to go urinate.
[2022-08-25 18:34] LABS: ALANINE AMINOTRANSFERASE 19 U/L (12-78); ALBUMIN 1.7 g/dL (3.4-4.8); ASPARTATE AMINOTRANSFERASE 13 U/L (10-37); TOTAL BILIRUBIN 0.1 mg/dL (0.0-1.0)
--- NOTE | 2022-08-25 19:11 | NUR ---
Patient sleeping with no sign or symptoms of pain or distress at this time.
[2022-08-25] MEDS ORDERED: ALBUMIN HUMAN 25% 100 ML IV ONE (19:45)
[2022-08-25] MEDS ORDERED: CALCIUM GLUCONATE 1 GM in NS 100 ML IV ONE (19:45)
--- NOTE | 2022-08-25 19:47 | NUR ---
Admit bed requested Patient will be admitted to care of Dr.SINGH Guadarrama Admitted to MED SURG unit. Diagnosis J TUBE MALFUNCTION Inpatient (Yes or No) YES Observation (Yes or No) NO Orientation concerns or request close to nursing station (Yes or No) NO Covid Status NA On vent or bipap NO Isolation requirements NO Needs a sitter NO From Home (Yes or if No enter name of facility) NO [facility] Requires Dialysis (Yes or No) NO Med Rec Completed (Yes of No) YES
[2022-08-25] MEDS ORDERED: CALCIUM GLUCONATE 1 GM/10 ML VIAL ONE (19:57)
[2022-08-25] MEDS ORDERED: ACET-2051 PO (20:03)
[2022-08-25] MEDS ORDERED: ACET325T53 JT (20:03)
[2022-08-25] MEDS ORDERED: ACET-73 PO (20:03)
--- NOTE | 2022-08-25 20:10 | NUR ---
Calcium Gluconate IV started.
[2022-08-25 20:13] LABS: INR 1.1 (0.80-1.20); PROTHROMBIN TIME 11.4 SECS (9.5-12.5)
[2022-08-25] MEDS ORDERED: DOCUSATE SODIUM 100 MG CAPSULE PO PRN (20:15)
[2022-08-25] MEDS ORDERED: POTASSIUM CHLORIDE 20 MEQ TAB.PRT.SR PO PRN (20:15)
[2022-08-25] MEDS ORDERED: ALBUTEROL SULFATE 0.083% 2.5 MG/3 ML VIAL.NEB INH PRN (20:15)
[2022-08-25] MEDS ORDERED: ACETAMINOPHEN 325 MG TABLET PO PRN ×2 (20:15)
[2022-08-25] MEDS ORDERED: ZOLPIDEM TARTRATE 5 MG TABLET PO PRN (20:15)
[2022-08-25] MEDS ORDERED: LORazepam 2 MG/ML VIAL IVP PRN (20:15)
[2022-08-25] MEDS ORDERED: MUPIROCIN 2% TOPICAL OINTMENT 22 GM NS PRN (20:15)
[2022-08-25] MEDS ORDERED: MAGNESIUM SULFATE 50 ML IV PRN (20:15)
[2022-08-25] MEDS ORDERED: NALOXONE HCL 0.4 MG/ML AMP (NARCAN) IVP PRN ×2 (20:15)
[2022-08-25] MEDS ORDERED: FLEETMO RC (20:23)
[2022-08-25] MEDS ORDERED: NICOTROL INH (20:23)
[2022-08-25] MEDS ORDERED: CALC-1036 JT (20:23)
[2022-08-25] MEDS ORDERED: LOM2.5 JT (20:23)
[2022-08-25] MEDS ORDERED: NALO4SPR NS (20:23)
--- NOTE | 2022-08-25 20:30 | NUR ---
Report called to BHARAT Bhagat. Patient transferred to room 100-B in stable condition via gurney & TANK TENDER. Calcium Gluconate infusion in progress.
[2022-08-25] MEDS: D5NS 1,000 ML IV SCH (22:31)
[2022-08-25] MEDS: MORPHINE 2 MG/ML INJ. SYRINGE IVP PRN (22:40)
[2022-08-25 22:49] VITALS: BP_SYST 99
--- NOTE | 2022-08-25 23:45 | NUR ---
admission process / pictures admission intake, assessment completed and pictures taken
[2022-08-26 00:02] VITALS: BP_SYST 130
[2022-08-26 01:39] LABS: BILIRUBIN,URINE NEGATIVE (NEGATIVE); BLOOD, URINE NEGATIVE (NEGATIVE); CLARITY/URINE CLEAR (CLEAR); COLOR,URINE YELLOW (YELLOW); GLUCOSE,URINE NEGATIVE (NEGATIVE); KETONES,URINE NEGATIVE (NEGATIVE); LEUKOCYTE ESTERASE ,URINE NEGATIVE (NEGATIVE); NITRITE, URINE NEGATIVE (NEGATIVE); PH,URINE 6.5 (5.0-8.0); PROTEIN URINE NEGATIVE (NEGATIVE); UROBILINOGEN,URINE 0.2 (0.2-1.0)
[2022-08-26 03:55] VITALS: BP_SYST 111
--- NOTE | 2022-08-26 05:20 | NUR ---
MRSA, FUNGAL(MYCOLOGY) Explained procedure to patient, he agreed and tolerated swab procedure of nares and underarms. will send samples to lab
--- NOTE | 2022-08-26 05:49 | NUR ---
CONSULTATION PAGED/CALLED Reason for Consultation: J TUBE MALFUNCTION Person Who was Notified: RAMÍREZ Consulting Physician: SAFIA Equal Opportunity Director Specialty: Ordering Physician: ANGELA
--- NOTE | 2022-08-26 05:58 | NUR ---
Dr. Comer Incoming call from Dr. Comer, updated and informed reason for consult; J-tube pulled out. Call got cut off d/t generator test
[2022-08-26 06:57] LABS: BASOPHILS % (AUTO) 0.5 % (0.0-2.0); EOSINOPHILS % (AUTO) 0.4 % (0.0-4.0); HEMATOCRIT 24.7 % (36-54); HEMOGLOBIN 8.5 g/dL (14.0-18.0); LYMPHOCYTES # (AUTO) 1.4 K/uL (1.0-5.5); MEAN CORPUSCULAR HEMOGLOBIN 35 pg (27-31); MEAN CORPUSCULAR HGB CONC 34 % (32-36); MEAN CORPUSCULAR VOLUME 101 fL (79.0-98.0); MONOCYTES # (AUTO) 0.8 K/uL (0.0-1.0); MONOCYTES % (AUTO) 7.7 % (1.7-9.3); NEUTROPHILS # (AUTO) 7.8 K/uL (1.8-7.7); NEUTROPHILS % (AUTO) 77.4 % (40.0-70.0); PLATELET COUNT (AUTO) 531 K/uL (130-430); RED BLOOD CELL COUNT(AUTO) 2.44 MIL/uL (4.2-6.2); RED CELL DISTRIBUTION WIDTH 16.1 % (9.0-15.0); WHITE BLOOD COUNT (AUTO) 10.1 K/uL (4.8-10.8)
[2022-08-26] MEDS: ONDANSETRON HCL 4 MG/2 ML VIAL IVP PRN ×2 (06:57→12:55)
[2022-08-26] MEDS: MORPHINE 2 MG/ML INJ. SYRINGE IVP PRN ×5 (07:00→21:20)
--- NOTE | 2022-08-26 07:13 | NUR ---
MORPHINE, DIANELYS ADMINISTERED MORPHINE FOR MODERATE PAIN, GENERALIZED TO BACK AND SHOULDERS.
[2022-08-26 07:17] LABS: CALCIUM 7.9 mg/dL (8.4-11.0); CREATININE 0.4 mg/dL (0.55-1.30)
[2022-08-26] MEDS: SERTRALINE HCL 50 MG TABLET JT SCH (07:36)
[2022-08-26 08:00] VITALS: BP_SYST 98
[2022-08-26] MEDS: D5NS 1,000 ML IV SCH ×2 (08:45→22:30)
--- NOTE | 2022-08-26 10:56 | NUR ---
spoke with Dr Hsieh. notified that pt is NPO due to esophageal CA and cannot swallow. states to hold po azithromycin for now. states give via J/Gtube once reestablished
[2022-08-26] MEDS ORDERED: AZITHROMYCIN 250 MG TABLET PO ONE (11:00)
[2022-08-26] MEDS: cefTRIAXone 1 GM in D5W 50 ML IV SCH (11:26)
[2022-08-26] MEDS ORDERED: NICOTINE 21 MG/24 HR PATCH.TD24 TD ONE (11:30)
[2022-08-26 11:34] VITALS: BP_SYST 95
--- NOTE | 2022-08-26 11:39 | NUR ---
LOLITA spoke with patient brother Austyn [phone] who informed that the patient had received a terminal illness dgx CA recently and would like him to be on hospice. LOLITA notifed Dr Hsieh who is recommending [facility].
[2022-08-26 15:01] VITALS: BP_SYST 106
--- NOTE | 2022-08-26 16:45 | NUR ---
DR BAIG CALLED OFFICE TO FOLLOW UP WITH CONSULT AND SPOKE WITH KUSHAL WHO STATED WILL SEND MESSAGE TO
[2022-08-26 20:00] VITALS: BP_SYST 106
--- NOTE | 2022-08-26 20:29 | NUR ---
Dr. Comer at bedside with patient to renay, s/w patient and explained procedure for possible J-tube insertion tonight. Patient verbalized understanding and reports doesn't have questions.
--- NOTE | 2022-08-26 20:46 | NUR ---
Dr. Comer, surgery 08/27/22 Incoming call; he informed Anesthesiology can't do surgery tonight and it will be done tomorrow (08/27/22)afternoon.
--- NOTE | 2022-08-26 22:30 | NUR ---
IVF fluids empty, hung new bag of D5 NS and infusing well, no /sx of infiltration
[2022-08-27 00:56] VITALS: BP_SYST 116
--- NOTE | 2022-08-27 00:57 | NUR ---
Ativan Patient not resting and reports having trouble sleeping. He asked for Ambien and explained unable to administer. He is anxious d/t not getting restful sleep. administered Ativan as ordered.
--- NOTE | 2022-08-27 01:44 | NUR ---
rounds Patient fell asleep uncovered and holding urinal (emptied 250 ml yellow ua). Momentarily awakened and he continued asleep. v/s taken and at baseline for him; 108/75,HR 76, resp 20, 92% room air, connected to 2L NC. wctm
[2022-08-27 05:20] VITALS: BP_SYST 118
--- NOTE | 2022-08-27 05:30 | NUR ---
patient care incontinent, provided lula-care and changed foam dressing to sacro-buttocks. VSS
[2022-08-27 06:36] LABS: BASOPHILS % (AUTO) 0.4 % (0.0-2.0); EOSINOPHILS % (AUTO) 0.1 % (0.0-4.0); HEMATOCRIT 27.4 % (36-54); HEMOGLOBIN 9.2 g/dL (14.0-18.0); LYMPHOCYTES % (AUTO) 10.1 % (20.5-51.5); MEAN CORPUSCULAR HEMOGLOBIN 34 pg (27-31); MEAN CORPUSCULAR HGB CONC 34 % (32-36); MEAN CORPUSCULAR VOLUME 102 fL (79.0-98.0); MONOCYTES # (AUTO) 0.7 K/uL (0.0-1.0); MONOCYTES % (AUTO) 7.1 % (1.7-9.3); NEUTROPHILS # (AUTO) 8.5 K/uL (1.8-7.7); NEUTROPHILS % (AUTO) 82.3 % (40.0-70.0); PLATELET COUNT (AUTO) 565 K/uL (130-430); RED BLOOD CELL COUNT(AUTO) 2.69 MIL/uL (4.2-6.2); RED CELL DISTRIBUTION WIDTH 16.2 % (9.0-15.0); WHITE BLOOD COUNT (AUTO) 10.3 K/uL (4.8-10.8)
[2022-08-27 07:00] LABS: CALCIUM 8.3 mg/dL (8.4-11.0); CREATININE 0.34 mg/dL (0.55-1.30)
--- NOTE | 2022-08-27 07:25 | NUR ---
closing note Endorsed care. Isolation and safety precautions in place. Patient is sleepy, lethargic, yet arousable. Needs met throughout shift.
--- NOTE | 2022-08-27 07:30 | NUR ---
OPENING NOTE; PT SLEEPING IN BED WITH EYES CLOSED. IVF RUNNING ORDERED. NO IV INFILTRATION OR INFECTION NOTED. CONTACT ISOLATION DUE TO PENDING FUNGAL CX. BED IS LOCKED AND AT LOW POSITION. CALL LIGHT WITHIN REACH. SAFETY PRECAUTION IN PLACE. WILL CONT TO MONITOR FOR ANY CHANGES
[2022-08-27] MEDS: NICOTINE 21 MG/24 HR PATCH.TD24 TD SCH (08:49)
[2022-08-27] MEDS: AZITHROMYCIN 250 MG TABLET PO SCH (08:50)
[2022-08-27] MEDS: SERTRALINE HCL 50 MG TABLET JT SCH (08:50)
[2022-08-27] MEDS: MORPHINE 2 MG/ML INJ. SYRINGE IVP PRN ×4 (09:06→22:44)
--- NOTE | 2022-08-27 09:06 | NUR ---
PAIN MEDICATION GIVEN, WILL CONT TO MONITOR FOR EFFECTIVENESS OF MED
[2022-08-27] MEDS: D5NS 1,000 ML IV SCH ×2 (10:17→21:03)
[2022-08-27] MEDS: cefTRIAXone 1 GM in D5W 50 ML IV SCH (11:54)
[2022-08-27 12:29] VITALS: BP_SYST 91
--- NOTE | 2022-08-27 13:00 | NUR ---
PAIN MEDICATION.MORPHINE PROVIDED ASV PER PT'S REQUEST
--- NOTE | 2022-08-27 13:15 | NUR ---
Dietitian Recommendations * Jevity 1.5 at 55 ml/hr, Free Water Flush: 200 ml Q4h via JT Provides: 1980 kcal/day, 84 gm protein/day, and 2203 ml free water/day Meets: 94% of lower end of estimated caloric needs, 100% of lower end of estimated protein needs, and 105% of lower end of estimated fluid needs LP, MS, RD Please refer to Nutrition Assessment for details. Addendum: 08/27/22 at [address] Amended: Links added.
--- NOTE | 2022-08-27 16:43 | NUR ---
Gen Surgeon Dr Comer was called, RE; TO ASK HIM THE TIME THAT HE WILL CHANGE THE G TUBE. SPOKE TO KIN. Dr. Comer is in surgery at the moment.
[2022-08-27 16:59] VITALS: BP_SYST 109
--- NOTE | 2022-08-27 17:15 | NUR ---
MORPHINE IVP PROVIDED
--- NOTE | 2022-08-27 17:30 | NUR ---
PT LEFT FOR J-TUBE PLACEMENT
[2022-08-27] MEDS ORDERED: SEVOFLURANE 15 MIN GAS INH ONE (17:40)
[2022-08-27] MEDS ORDERED: PROPOFOL 200MG/ 20ML VIAL (DIPRIVAN) IV ONE (17:40)
[2022-08-27] MEDS ORDERED: NS IRRIG SOLN 1000 ML IR ONE (17:40)
[2022-08-27] MEDS ORDERED: ROCURONIUM BROMIDE 10 MG/ML (ZEMURON) ONE (17:40)
[2022-08-27] MEDS ORDERED: LR 1,000 ML IV.SOLN IV ONE (17:40)
[2022-08-27] MEDS ORDERED: BUPIVACAINE /PF 0.25% 30 ML VIAL INJ ONE (17:40)
[2022-08-27] MEDS ORDERED: fentaNYL CITRATE/PF 100 MCG/2 ML AMP IVP PRN ×2 (18:15)
[2022-08-27] MEDS ORDERED: ALBUMIN HUMAN 5% 250 ML IV ONE (18:20)
--- NOTE | 2022-08-27 19:15 | NUR ---
CLOSING NOTE; PT IN O.R FOR J-TUBE PLACEMENT. ENDORSED CARE TO GOVERNMENT SALES MANAGER NURSE.
[2022-08-27] MEDS ORDERED: KETOROLAC TROMETHAMINE 30 MG VIAL ONE (19:42)
[2022-08-27] MEDS ORDERED: KETOROLAC TROMETHAMINE 30 MG VIAL IVP ONE (19:45)
[2022-08-27] MEDS ORDERED: ACETAMINOPHEN WITH CODEINE 12.5 ML UDC JT PRN (19:45)
[2022-08-27] MEDS ORDERED: fentaNYL CITRATE/PF 100 MCG/2 ML AMP ONE (19:59)
--- NOTE | 2022-08-27 20:50 | NUR ---
PATIENT BACK FROM O.R. PATIENT IS NOW BACK FROM O.R. PROCEDURE. BEDSIDE REPORT RECEIVED FROM BHARAT CERVANTES. PATIENT IS STABLE AT THIS TIME.
--- NOTE | 2022-08-28 01:00 | NUR ---
J-TUBE FEEDING STARTED J-TUBE FEEDING STATED AT THIS TIME, LATE START DUE TO BUSY PATIENT CARE. J-TUBE FLUSHED WITH 30 ML H20 PER MD ORDERS. PATIENT TOLERATED WELL AND VERBALIZED NO PAIN. WILL CONTINUE TO MONITOR CLOSELY.
[2022-08-28] MEDS: ONDANSETRON HCL 4 MG/2 ML VIAL IVP PRN (02:50)
[2022-08-28] MEDS: MORPHINE 2 MG/ML INJ. SYRINGE IVP PRN ×3 (02:51→11:20)
[2022-08-28] MEDS: AZITHROMYCIN 250 MG TABLET PO SCH (03:11)
[2022-08-28 04:46] VITALS: BP_SYST 107
--- NOTE | 2022-08-28 06:50 | NUR ---
CLOSING NOTE PATIENT'S J-TUBE WORKED WELL THROUGHOUT THE NIGHT, NO RESIDUAL NOTED THIS MORNING. PATIENT IS TOLERATING WELL, ALTHOUGH HE VERBALIZES PAIN AT SURGICAL SITE. SURGICAL SITE DRESSING IS STILL CLEAN, DRY, AND INTACT.
[2022-08-28 07:07] LABS: BASOPHILS # (AUTO) 0.1 K/uL (0.0-0.2); BASOPHILS % (AUTO) 0.5 % (0.0-2.0); HEMATOCRIT 24.8 % (36-54); HEMOGLOBIN 8.2 g/dL (14.0-18.0); LYMPHOCYTES # (AUTO) 1.1 K/uL (1.0-5.5); LYMPHOCYTES % (AUTO) 9.6 % (20.5-51.5); MEAN CORPUSCULAR HEMOGLOBIN 34 pg (27-31); MEAN CORPUSCULAR HGB CONC 33 % (32-36); MEAN CORPUSCULAR VOLUME 102 fL (79.0-98.0); MONOCYTES # (AUTO) 0.5 K/uL (0.0-1.0); MONOCYTES % (AUTO) 4.4 % (1.7-9.3); NEUTROPHILS % (AUTO) 85.5 % (40.0-70.0); PLATELET COUNT (AUTO) 541 K/uL (130-430); RED BLOOD CELL COUNT(AUTO) 2.43 MIL/uL (4.2-6.2); RED CELL DISTRIBUTION WIDTH 15.9 % (9.0-15.0); WHITE BLOOD COUNT (AUTO) 11.7 K/uL (4.8-10.8)
[2022-08-28 07:31] LABS: CALCIUM 8.1 mg/dL (8.4-11.0); CREATININE 0.42 mg/dL (0.55-1.30)
[2022-08-28] MEDS: NICOTINE 21 MG/24 HR PATCH.TD24 TD SCH (08:49)
[2022-08-28] MEDS: SERTRALINE HCL 50 MG TABLET JT SCH (08:49)
[2022-08-28] MEDS: D5NS 1,000 ML IV SCH (10:30)
[2022-08-28 11:23] VITALS: BP_SYST 123
--- NOTE | 2022-08-28 11:47 | NUR ---
Patient to DC to [facility] room 38-Number for report [phone] to transport at 1300
--- NOTE | 2022-08-28 12:10 | NUR ---
Flower Shop Manager re: social work job titles referral in to see patient at bedside. The patient is alert and oriented. I introduced myself and explained why I was in to see him. The patient was in agreement to speak with me. The patient is a [facility] resident of [facility]. He has resided there a little less then a year. He is bed bound and chooses to watch TV in his room the majority of the time. He has a brother that comes in to visit him weekly. he is followed by the marilia forman. The discharge plan is to return back to the SNF at discharge.
[2022-08-28] MEDS: cefTRIAXone 1 GM in D5W 50 ML IV SCH (12:36)
[2022-08-28 13:00] VITALS: BP_SYST 123
--- NOTE | 2022-08-28 13:45 | NUR ---
patient dc to [facility], report given to deisi receiving nurse, iv dc with cath intact, patient trasported by [facility], dc instructions given to patient and brother at bedside, no other concerns at this time
== END 2022-08-28 13:45 | DRG 344 ==
LOC: SED 15:50 → SMU 19:42
PROVIDERS: ADMIT General Practice; ATTEND General Practice
PROC: 0DHA0UZ Insertion of Feeding Device into Jejunum, Open Approach (ICD-10-PCS; 2022-08-27)
PROC: 0DP Gastrointestinal System, Removal (ICD-10-PCS; principal; 2022-08-27 17:40)
DX: K94.13 Enterostomy malfunction (principal); E43 Unspecified severe protein-calorie malnutrition; J69.0 Pneumonitis due to inhalation of food and vomit; Z68.1 Body mass index [BMI] 19.9 or less, adult; E87.1 Hypo-osmolality and hyponatremia; C15.9 Malignant neoplasm of esophagus, unspecified; K63.2 Fistula of intestine; K21.9 Gastro-esophageal reflux disease without esophagitis; D63.8 Anemia in other chronic diseases classified elsewhere; D72.829 Elevated white blood cell count, unspecified; Z85.01 Personal history of malignant neoplasm of esophagus
CPT/HCPCS: 36415; 71045; 80048; 80053; 81003; 83037; 83735; 83880; 84484; 85025; 85610-TC; 85730-TC; 86886; 86900; 86901; 87081; 87101; 93005; 96365; 96375; 99285; J0610; J0696; J1885; J2060; J2270; J2405; J2704; J3010; J3490; J7060; J7120; P9041; P9046; Q0144